=== PATIENT | female | born 1990 | race Native Hawaiian/Other Pacific Islander ===

== ENCOUNTER 2019-10-05 13:43 | Emergency (ER) | payer SELFPAY ==
--- NOTE | 2019-10-05 14:00 | RT.EKG_ITS ---
APPROVED REPORT Exam: Resting ECG Patient Location: E HR:84 bpm ECG Measurements Heart Rate 84 AXIS MN 154 P 55 QRSd 88 QRS 35 QT 363 T 64 QTc 429 Conclusion Sinus rhythm...normal P axis, V-rate 60- 99
--- NOTE | 2020-04-05 | DI.RAD_ITS ---
Exam(s) XR KNEE LT 2V AP,LAT EXAM: XR KNEE LT 2V AP,LAT CLINICAL HISTORY: testing orthoview TECHNIQUE: COMPARISON: CR XR KNEE RT 3V AP,LAT,SAVANNA from 04/05/2020 FINDINGS: [id number] IMPRESSION: Incidental Findings RADIATION DOSE DELIVERED: Total DLP
--- NOTE | 2021-03-08 | DI.US_ITS ---
APPROVED REPORT EXAM: Stress Echocardiogram Ordering Provider: HEENA SMITH, Contact Number: Stress Test Details Rest Stress HR Max Heart Rate (APMHR): 188 bpm Target HR (85% APMHR): 159 bpm BP ECG Stress ECG Conclusion 1. testing signature
== END 2019-10-05 19:11 ==
LOC: ER 13:48
PROVIDERS: Emergency Provider Student in an Organized Health Care Education/Training Program
DX: R69 Illness, unspecified (principal)
CPT/HCPCS: 93005; 93010

== ENCOUNTER 2020-02-02 14:55 | Outpatient (RCR) | payer MEDICARE, SELFPAY | END 2020-02-29 23:59 | disposition home or self-care (01) | LOC: RT 14:55 | DX: R69 Illness, unspecified (principal) | CPT/HCPCS: 93225; 93226 ==